=== PATIENT | female | born 1950 | race African-American/Black ===

== ENCOUNTER 2017-05-12 17:43 | Emergency (ER) | payer MEDICAID, MEDICARE ==
[~2017-05-12] VITALS: Ht 170.2 cm; Wt 78.2 kg
[~2017-05-12 17:43] MED LIST: ASPI-1159 PO; EFAV1TAB3 PO; OCD PO
[2017-05-12 19:25] VITALS: BP 122/87
[2017-05-12] MEDS ORDERED: LIDOCAINE HCL 1% 20ML VIAL (Pyxis) INJ INFIL ONE (21:30)
== END 2017-05-12 22:14 | disposition home or self-care (01) ==
LOC: ER 18:21
DX: S00.451A Superficial foreign body of right ear, initial encounter (principal); Z79.82 Long term (current) use of aspirin; Z90.710 Acquired absence of both cervix and uterus; W45.8XXA Other foreign body or object entering through skin, initial encounter; Y93.89 Activity, other specified; Y92.89 Other specified places as the place of occurrence of the external cause; Y99.8 Other external cause status
CPT/HCPCS: 99284; J3490